=== PATIENT | female | born 1995 | race Caucasian/White ===

== ENCOUNTER 2020-02-25 13:24 | Observation (INO) | payer BC ==
[2020-02-25] MEDS ORDERED: IV RINGERS,LACTATED 1000ML 1,000 ML IV PRN (14:15)
[2020-02-25 14:18] LABS: BILIRUBIN,URINE NEGATIVE (NEG); CLARITY,URINE CLEAR; COLOR,URINE YELLOW; NITRITE,URINE NEGATIVE (NEG); PROTEIN,URINE NEGATIVE (NEG-TRACE); UROBILINOGEN,URINE 0.2 mg/dL (0.2 mg/dL)
[2020-02-25 14:30] LABS: BACTERIA,URINE FEW /HPF (0-FEW); RBC,URINE OCC /HPF (0-2); SQUAMOUS EPITHELIAL CELL,UR MANY /LPF; WBC,URINE RARE /HPF (0-4)
[2020-02-25 14:39] LABS: AMNIO PT NEGATIVE
--- NOTE | 2020-02-25 14:57 | RAD ---
Biophysical profile 02/25/2020 Clinical History: Third trimester . Decreased movement. Technique: A real-time ultrasound examination of the gravid uterus was performed over a 15 minute period of observation by the cath lab radiological technologist. The following parameters were scored at 2 point scale: respiration, tone, breathing and quantitative amniotic fluid volume. Multiple images were obtained. Findings: There is a single living IUP. The fetus is in a cephalic position. The placenta is anterior. Amniotic fluid volume is within normal limits. heart rate is 117 bpm. The CAROLINE measures 24.2 cm. respiration, movement, tone and qualitative amniotic fluid volume score 2 out of 2 points for an 8 out of 8 biophysical profile. Impression: 8 out of 8 biophysical profile. Electronically signed by: Trevor Lugo MD (02/25/2020 2:54 PM) [id number]
== END 2020-02-25 16:48 | disposition home or self-care (01) ==
LOC: 3 SO LND 13:24
PROVIDERS: ADMIT Obstetrics & Gynecology; ATTEND Obstetrics & Gynecology
DX: O36.8130 Decreased fetal movements, third trimester, not applicable or unspecified (principal); O62.9 Abnormality of forces of labor, unspecified; Z3A.35 35 weeks gestation of pregnancy
CPT/HCPCS: 36415; 76819; 81001; 84112; G0378; G0379